=== PATIENT | male | born 1975 | race Caucasian/White ===

== ENCOUNTER 2020-02-10 17:06 | Emergency (ER) | payer OTHER ==
[~2020-02-10] VITALS: Ht 177.8 cm; Wt 97.5 kg
[2020-02-10 17:15] VITALS: Ht 177.8 cm; Wt 97.5 kg
[2020-02-10 18:55] VITALS: BP 120/78
== END 2020-02-10 18:55 | disposition home or self-care (01) ==
LOC: ED 17:06
DX: U07.1 COVID-19 (principal); J12.89 Other viral pneumonia; I10 Essential (primary) hypertension; E11.9 Type 2 diabetes mellitus without complications; Z88.0 Allergy status to penicillin
CPT/HCPCS: J1885; J7030; Q0092; U0003-CS